=== PATIENT | female | born 1980 | race Caucasian/White ===

== ENCOUNTER 2017-06-09 11:13 | Emergency (ER) | payer OTHER ==
[2017-06-09 11:18] VITALS: TEMP 97.4; BMI 37.9
--- NOTE | 2017-06-09 11:44 | PDOC ---
History of Present Illness - General Chief Complaint: Headache Stated Complaint: HEADACHE Time Seen by Provider: 06/09/17 11:31 - History of Present Illness Initial Comments: 06/09/17 12:40 The patient is a 36 year old female with a history of Migraines, Fibromyalgia who presents for evaluation of headache. The patient reports a 4 day history of worsening headache with some associated tingling and numbness to her right cheek. She states that her symptoms did not improve with excedrine and felt different from her normal headaches prompting her presentation to the ED for evaluation. She reports some nausea with 2 episodes of non-bilious, non-bloody vomiting, but otherwise denies fevers, chills, SOB, chest pain, abdominal pain, or changes with urination or bowel movements. Past History - Past Medical History Allergies/Adverse Reactions: Allergies Allergy/AdvReac Type Severity Reaction Status Date / Time No Known Allergies Allergy Verified 06/09/17 11:14 Home Medications: Ambulatory Orders NK [No Known Home Medication] 06/01/14 Asthma: No Cancer: No Cardiac Disorders: No COPD: No DVT: No Diabetes: No HTN: No Kidney Stones: Yes Seizures: No Thyroid Disease: No Other medical history: migraines, fibromyalgia - Immunization History Immunization Up to Date: Yes (FLU 2013) - Suicide/Smoking/Psychosocial Hx Smoking History: Current every day smoker Have you smoked in the past 12 months: Yes Number of Cigarettes Smoked Daily: 6 Information on smoking cessation initiated: Yes 'Breaking Loose' booklet given: 06/09/17 Hx Alcohol Use: No Drug/Substance Use Hx: No Substance Use Type: None Hx Substance Use Treatment: No Review of Systems - Review of Systems Comments:: 06/09/17 12:43 Constitutional: No fevers, chills, fatigue, malaise HEENT: No Rhinorrhea, nasal congestion, visual changes Cardiovascular: No chest pain, syncope, palpitations, lightheadedness Respiratory: No Cough, SOB, Hemoptysis, Gastrointestinal: Nausea, vomiting. No Abdominal pain, Constipation, Diarrhea, Melena Genitourinary: No Dysuria, Frequency, Urgency, Hesitancy, Hematuria, Flank pain Musculoskeletal: No Myalgia, arthralgia Skin: No rashes, itching, bruising, pallor Neurologic: Headache, numbness, tingling. No Dizziness, Weakness, Psychiatric: No Hallucinations. No SI or HI *Physical Exam - Vital Signs Last Vital Signs Temp Pulse Resp BP Pulse Ox 97.4 F L 71 18 130/67 99 06/09/17 11:15 06/09/17 11:15 06/09/17 11:15 06/09/17 11:15 06/09/17 11:15 - Physical Exam Comments: 06/09/17 12:44 General Appearance: Nourished. No Apparent Distress HEENT: EOMI, GRETCHEN. No Pharyngeal Erythema, Tonsillar Exudate, Tonsillar Erythema Neck: No Cervical Lymphadenopathy Respiratory/Chest: Lungs Clear, Normal Breath Sounds. No Crackles, Rales, Rhonchi, Wheezing Cardiovascular: Regular Rhythm, Regular Rate. No Murmur, Gallops, Rubs Gastrointestinal/Abdominal: Normal Bowel Sounds, Soft. No Guarding, Rebound, Tenderness Musculoskeletal: No CVA Tenderness Extremity: Normal Capillary Refill Integumentary: Normal Color, Dry, Warm Neurologic: oracle forms developer II-XII NML intact, Fully Oriented, Alert, Normal Mood/Affect, Normal Response, Motor Strength 5/5. Normal Finger to Nose and Heel to [place] ED Treatment Course - LABORATORY CBC & Chemistry Diagram: 06/09/17 12:02 06/09/17 12:02 Medical Decision Making - Medical Decision Making 06/09/17 12:45 The patient is a 36 year old female with a history of Migraines, Fibromyalgia who presents for evaluation of headache. Differential includes but is not limited to: Migraine Headache, Trigeminal Neuralgia, Intracranial process, infectious, metabolic derangement. Given the patient's history of migraines, it is likely the patient's symptoms are due to a migraine headache or due to a trigeminal neuralgia. However, we will obtain a cbc, cmp, serum preg and head CT to evaluate further for possible etiologies. We will treat in the meantime with iv fluids, reglan, iv tylenol. We will continue to monitor and reassess. 06/09/17 13:18 CBC, cmp, serum preg are unremarkable. Head CT is unremarkable as read by our radiologist. The patient reports improvement in her symptoms. We are comfortable discharging the patient home at this time with neurology follow up. We discussed the results, plan, and return precautions with the patient who voiced understanding and is agreeable with the plan. *DC/Admit/Observation/Transfer Diagnosis at time of Disposition: Headache Qualifiers: Headache type: unspecified Headache chronicity pattern: unspecified pattern Intractability: not intractable Qualified Code(s): R51 - Headache - Discharge Dispostion Disposition: HOME Condition at time of disposition: Good Admit: No - Referrals Referrals: Mingo Alonso [Primary Care Provider] - Torito Garner MD [Staff Physician] - - Patient Instructions Printed Discharge Instructions: DI for Headache Additional Instructions: Please return to the ER if you experience concerning or worsening symptoms including worsening headache, fevers, vomiting, or weakness in your arms or legs. Your lab results and CT scan were normal here in the ER. It is extremely important that you call to schedule a follow up appointment with our Neurologist Dr. Garner within 2-3 days to discuss your ER visit and further management of your symptoms. Please also call to schedule a follow up appointment with your primary care provider within 1 week to discuss your ER visit as well. - Post Discharge Activity
[2017-06-09] MEDS ORDERED: ACETAMINOPHEN 1000 MG/100 ML VIAL (NON FORMULARY) IVPB ONE (11:52)
[2017-06-09] MEDS ORDERED: METOCLOPRAMIDE HCL INJECTION 10 MG/2 ML VIAL IVPUSH ONE (11:52)
[2017-06-09] MEDS ORDERED: SODIUM CHLORIDE 1,000 ML IV STA (11:52)
[2017-06-09] MEDS ORDERED: METOCLOPRAMIDE HCL INJECTION 10 MG/2 ML VIAL ONE (11:59)
[2017-06-09] MEDS ORDERED: ACETAMINOPHEN INJECTION 100 ML IVPB ONE (11:59)
[2017-06-09 12:12] LABS: BASO % 0.9 % (0-2.0); EOS % 0.9 % (0-4.5); HEMATOCRIT 39.9 % (32.4-45.2); HEMOGLOBIN 13.2 GM/dL (10.7-15.3); LYMPH % 26.9 % (8-40); MCH 27.6 pg (25.7-33.7); MCHC 32.9 g/dl (32.0-36.0); MEAN CELL VOLUME 83.8 fl (80-96); MEAN PLT VOLUME 7.9 fl (7.5-11.1); MONO % 6.3 % (3.8-10.2); PLATELET COUNT 330 K/MM3 (134-434); RBC 4.77 M/mm3 (3.60-5.2); RDW 14.1 % (11.6-15.6); WHITE BLOOD COUNT 9.4 K/mm3 (4.0-10.0)
[2017-06-09 12:41] LABS: ALBUMIN 3.9 g/dl (3.4-5.0); ANION GAP 5 (8-16); BLOOD UREA NITROGEN 18 mg/dL (7-18); CALCIUM 8.8 mg/dL (8.5-10.1); CHLORIDE 107 mmol/L (98-107); CO2 27 mmol/L (21-32); CREATININE 0.8 mg/dL (0.55-1.02); GLUCOSE,RANDOM 93 mg/dL (74-106); POTASSIUM 3.8 mmol/L (3.5-5.1); SGOT/AST 16 U/L (15-37); SGPT/ALT 16 U/L (12-78); SODIUM 139 mmol/L (136-145)
[2017-06-09 12:44] LABS: ALK PHOS 119 U/L (45-117); BILIRUBIN,TOTAL 0.2 mg/dL (0.2-1.0); TOT PROT 7.2 g/dl (6.4-8.2)
--- NOTE | 2017-06-09 14:10 | PDOC ---
Attending Attestation - Resident Resident Name: Yossi Blanca - ED Attending Attestation I have performed the following: I have examined & evaluated the patient, The case was reviewed & discussed with the resident, I agree w/resident's findings & plan, Exceptions are as noted - HPI HPI: 06/09/17 14:04 Ms Thomas presents to the ER with a complaint of headache. She has a history of Migraines and fibromyalgia She has had a headache for the past 4 days with associated tingling and numbness of the right cheek No improvement with Excedrine which prompted her visit to the ER (+) nausea, non bloody vomiting x 2 No fevers or chills No head trauma No changes in motor strength or sensation - Physicial Exam PE: 06/09/17 14:06 On examination Awake and alert Oriented x 3 RRR CTA No abd tenderness Neurologic: The patient is awake, alert, oriented x3. Gross motor and sensory exam is found to be intact. Sensation of distal lower extremities intact. 5/5 muscle strength of the lower extremities. - Medical Decision Making 06/09/17 14:07 36 yo F presenting with worsening migraine which has been constant for 4 days No nuchal rigidity or fever to suggest meningitis No neurological deficits Pt has h/o migraine ? sensory changes related to complicated migraine Will do: Labs CT Medications Will re assess 06/09/17 14:09 Laboratory Tests 06/09/17 06/09/17 06/09/17 12:02 12:02 12:02 WBC 9.4 Hgb 13.2 Hct 39.9 Plt Count 330 BUN 18 Creatinine 0.8 Serum , Qual Negative 06/09/17 14:09 CT: no acute intracranial pathology Will discharge to home Will ask pt to follow up PMD and Neurology Clinical Impression: migrainous headache, initial presentation
[2017-06-09 14:20] VITALS: BP 140/83; PULSE 60
== END 2017-06-09 14:20 | disposition home or self-care (01) ==
LOC: JER 11:13
PROC: 3E033NZ Introduction of Analgesics, Hypnotics, Sedatives into Peripheral Vein, Percutaneous Approach (ICD-10-PCS; principal; 2017-06-09)
PROC: 3E033GC Introduction of Other Therapeutic Substance into Peripheral Vein, Percutaneous Approach (ICD-10-PCS; 2017-06-09)
DX: R51 Headache (principal); M79.7 Fibromyalgia; G43.909 Migraine, unspecified, not intractable, without status migrainosus
CPT/HCPCS: 36415; 70450-TC; 80053; 84703; 85025; 96374; 96375; 99282-25; J0131; J7030

== ENCOUNTER 2018-06-27 08:11 | Emergency (ER) | payer OTHER ==
[2018-06-27 08:21] VITALS: BMI 30.4
[2018-06-27] MEDS ORDERED: ONDANSETRON 4 MG/2 ML VIAL IVPUSH ONE (08:35)
[2018-06-27] MEDS ORDERED: MECLIZINE HCL 25 MG TABLET (FP) PO ONE (08:35)
[2018-06-27] MEDS ORDERED: ONDANSETRON 4 MG/2 ML VIAL ONE (08:40)
[2018-06-27] MEDS ORDERED: MECLIZINE HCL 25 MG TABLET (FP) ONE (08:40)
[2018-06-27] MEDS ORDERED: SODIUM CHLORIDE 0.9% 1000 ML INFUS.BAG IV ONE (08:53)
--- NOTE | 2018-06-27 09:14 | PDOC ---
Documentation entered by Wilbur Carter SCRIBE, acting as scribe for Ioana Francisco MD. Ioana Francisco MD: This documentation has been prepared by the Raul earl Nirvannie, SCRIBE, under my direction and personally reviewed by me in its entirety. I confirm that the documentation accurately reflects all work, treatment, procedures, and medical decision making performed by me. Attending Attestation - Resident Resident Name: GuilleambrocioHernandez - ED Attending Attestation I have performed the following: I have examined & evaluated the patient, The case was reviewed & discussed with the resident, I agree w/resident's findings & plan - HPI HPI: 06/27/18 09:16 37-year-old female with history of migraines and fibromyalgia - presenting with syncopal episode this AM. she woke up at 6AM with acute vertigo, tried to go to the bathroom but due to the vertigo, she passed out walking in the hallway, no sz activity, out for unknown period. She hit her head against the wall. Continues to feel vertigo, associated with diaphoresis and weakness; no paresthesias or focal weakness, prodromal URI sx, no n/v, AP, blurry vision, blindness, tinnitis, hearing disturbances, urinary or bowel incontinence, headache. [facility] previously for vertigo sx similar presentation earlier in 2019 Admits to Feeling off x 3 months. No trauma or known triggers or stressors. - Physicial Exam PE: 06/27/18 09:14 Agree with the resident's HPI and PE as documented in the electronic medical record. NAD, well appearing, PERRL, EOMI, MMM, nl conjunctiva, anicteric; neck supple. lungs clear, RRR, abdomen soft nontender. SANDERSON x4, no focal neuro deficits. No peripheral edema. normal color for ethnicity, WWP. Alert, oriented to person time and place. No carotid bruit, CN II-XII grossly intact. Strength prox and distally 5/5 throughout. Sensation grossly intact to light touch. SANDERSON x4. No cerebellar signs, no dysmetria, bilateral finger to nose and heel to britt equal and symmetric. Speech clear. - Medical Decision Making 06/27/18 09:13 See HPI for details Vital signs reviewed, wnl. DDx. syncope: considered interval abnormalities including short QTC or long QT syndrome, WPW, conduction abnormality, Brugada, ACS, coronary vasospasm, arrhythmia, dissection, PE, electrolyte disturbances, metabolic derangement. Acute vertigo, peripheral vs central vertigo, BPPV, Considered but clinically doubt based on HPI and PE: Prior notes reviewed, including admissions, discharges and consultations. laboratory results and imaging reviewed, basic labs and lytes wnl, CXR_no acute chest pathology Cardiac panel_negative Dimer_neg, so unlikely PE and clinically not dissection, without neuro deficits or additional compliants such as CP. EKG sinus bradycardia at 47 bpm, no interval abnormalities, narrow QRS, ST and T wave segments and morphology normal. TWI in III, V3; no elevations or depressions of ST segments. similar to prior EKG ED course: no acute events. active vertigo, appearing peripheral without neuro deficits or changes, ambulatory no gait ataxia. attempt at Leeanne. HR improving at bedside with stimulation, up to NSR >60 bpm given meclizine and zofran, reassess CT head pending, conflicts/issues due to several last names and merging of data/ info. on reassessment at 1:00PM - pt refused further care, does not want to wait for pending CT head, wishes to go home despite feeling symptomatic and offered additional analgesia/meds. The patient has requested to leave the ED against medical advice. The patient reason(s) for leaving include, but are not limited to, the following: XXXX. I believe this patient is of sound mind and competent to refuse medical care. The patient is responding and asking questions appropriately. The patient is oriented to person, place and time. The patient is not psychotic, delusional, suicidal, homicidal or hallucinating. The patient demonstrates a normal mental capacity to make decisions regarding their healthcare. The patient is clinically sober and does not appear to be under the influence of any illicit drugs at this time. The patient has been advised of the risks, in layman terms, of leaving AMA which include, but are not limited to cardiac arrest, bleeding, head bleed, vertebral/vessal dissection and aneurysm, mass, arrhythmia, heart attack, stroke, respiratory failure, delay in diagnosis and management, loss of current lifestyle, loss of functional status, multiorgan failure, coma, severe disability and . Alternatives have been offered - the patient remains steadfast in their wish to leave. The patient has been advised that should they change their mind they are welcome to return to this hospital, or any other, at any time. The patient understands that in no way does an AMA discharge mean that I do not want them to have the best medical care available. To this end, I have provided appropriate prescriptions, referrals, and discharge instructions. The patient did sign AMA paperwork. The above discussion was witnessed by another member of staff, ANTONINA Bardales 06/27/18 16:00 Heart Score/ECG Review #1 ECG reviewed & interpreted by me at: 08:15 General ECG Interpretation: Sinus Rhythm, Normal Intervals Compared to previous ECG there are: No significant change 06/27/18 09:14 EKG sinus bradycardia at 47 bpm, no interval abnormalities, narrow QRS, ST and T wave segments and morphology normal. TWI in III, V3; no elevations or depressions of ST segments. similar to prior EKG
[2018-06-27 09:38] LABS: BASO % 0.5 % (0-2.0); EOS % 1.1 % (0-4.5); HEMATOCRIT 44.2 % (32.4-45.2); LYMPH % 26.2 % (8-40); MCH 27.2 pg (25.7-33.7); MCHC 31.6 g/dl (32.0-36.0); MEAN CELL VOLUME 86.1 fl (80-96); MEAN PLT VOLUME 7.9 fl (7.5-11.1); MONO % 6.6 % (3.8-10.2); NEUT % 65.6 % (42.8-82.8); PLATELET COUNT 369 K/MM3 (134-434); RBC 5.13 M/mm3 (3.60-5.2); RDW 13.9 % (11.6-15.6); WHITE BLOOD COUNT 9.8 K/mm3 (4.0-10.0)
--- NOTE | 2018-06-27 09:54 | PDOC ---
History of Present Illness - General Chief Complaint: Syncope/Near Syncope Stated Complaint: SHAKING Time Seen by Provider: 06/27/18 08:34 History Source: Patient, EMS, Significant Other Exam Limitations: No Limitations - History of Present Illness Initial Comments: 06/27/18 09:44 37F with PMH of vertigo who presents to the ER with complaints of dizziness, lightheadedness, and syncope. The patient states that she woke up this morning feeling "very off" with "dizziness" which she describes as room spinning and feeling "herself spinning". She states that she was walking and passed out, hitting her head on the way down. She admits to mild CP which she cannot describe except for pleuritic with "some" SOB. She denies long car rides/plane trips, hx of ca, hx of DVT/PE, hemoptysis, oral contraceptives, but admits to smoking 3-4 cigarettes/day. Past History - Past Medical History Allergies/Adverse Reactions: Allergies Allergy/AdvReac Type Severity Reaction Status Date / Time No Known Allergies Allergy Verified 06/27/18 08:35 Home Medications: Ambulatory Orders Meclizine HCl [Antivert -] 25 mg PO DAILY #30 tablet 06/27/18 Asthma: No Cancer: No Cardiac Disorders: No COPD: No DVT: No Diabetes: No HTN: No Kidney Stones: Yes Seizures: No Thyroid Disease: No - Immunization History Immunization Up to Date: Yes (FLU 2013) - Suicide/Smoking/Psychosocial Hx Smoking History: Current every day smoker Have you smoked in the past 12 months: Yes Number of Cigarettes Smoked Daily: 4 Information on smoking cessation initiated: No 'Breaking Loose' booklet given: 06/09/17 Hx Alcohol Use: No Drug/Substance Use Hx: Yes (marijuana) Substance Use Type: None Hx Substance Use Treatment: No Review of Systems - Review of Systems Able to Perform ROS?: Yes Comments:: 06/27/18 09:48 GENERAL/CONSTITUTIONAL: No fever or chills. No weakness. HEAD, EYES, EARS, NOSE AND THROAT: No change in vision. No ear pain or discharge. No sore throat. CARDIOVASCULAR: No chest pain, palpitations, or lightheadedness. RESPIRATORY: No cough, wheezing, shortness of breath, or hemoptysis. GASTROINTESTINAL: No nausea, vomiting, diarrhea, constipation, or abdominal pain. GENITOURINARY: No dysuria, frequency, hematuria, or change in urination. MUSCULOSKELETAL: No joint or muscle swelling or pain. No neck or back pain. SKIN: No rash or lesions. NEUROLOGIC: + for headache and vertiginous dizziness w/ syncope. No numbness, tingling, focal weakness, or change in strength/sensation. Is the patient limited Romansh proficient: No *Physical Exam - Vital Signs Last Vital Signs Temp Pulse Resp BP Pulse Ox 97.8 F 64 16 124/85 100 06/27/18 08:14 06/27/18 08:14 06/27/18 08:14 06/27/18 08:14 06/27/18 08:14 - Physical Exam Comments: 06/27/18 09:54 GENERAL: Well developed, well nourished. Awake and alert. In mild distress. HEENT: Normocephalic, atraumatic. Hearing grossly normal. Moist mucous membranes. PERRLA, EOMI. No conjunctival pallor. Sclera are non-icteric. . NECK: Supple. Full ROM. No JVD. CARDIOVASCULAR: Regular rate and rhythm. No murmurs, rubs, or gallops. PULMONARY: No evidence of respiratory distress. Lungs clear to auscultation bilaterally. No wheezing, rales or rhonchi. ABDOMINAL: Soft. Non-tender. Non-distended. No rebound or guarding. MUSCULOSKELETAL: Normal range of motion at all joints. No bony deformities or tenderness. EXTREMITIES: No cyanosis. No clubbing. No edema. No calf tenderness or swelling. SKIN: Warm and dry. Normal capillary refill. No rashes. No jaundice. NEUROLOGICAL: Alert, awake, appropriate. Cranial nerves 2-12 grossly intact. Persistent horizontal nystagmus w/ reproducible dizziness when staring at R. 5/ 5 strength in deltoids, biceps, triceps, quadriceps, hamstrings, and gastrocnemius. Normal speech. Gait is normal without ataxia. PSYCHIATRIC: Cooperative. Good eye contact. Appropriate mood and affect. ED Treatment Course - LABORATORY CBC & Chemistry Diagram: 06/27/18 08:52 06/27/18 08:52 - RADIOLOGY Radiology Studies Ordered: Category Date Time Status HEAD CT WITHOUT CONTRAST [CT] Stat CT Scan 06/27/18 08:54 Ordered CHEST PA & LAT [RAD] Stat Radiology 06/27/18 08:35 Ordered - Medications Given in the ED: ED Medications Discontinued Medications Generic Name Dose Route Start Last Admin Trade Name Chago PRN Reason Stop Dose Admin Meclizine HCl 25 mg 06/27/18 08:35 06/27/18 09:08 Antivert - PO 06/27/18 08:36 25 mg ONCE ONE Administration Ondansetron HCl 4 mg 06/27/18 08:35 06/27/18 09:08 Zofran Injection IVPUSH 06/27/18 08:36 4 mg ONCE ONE Administration Sodium Chloride 1,000 ml 06/27/18 08:53 06/27/18 09:09 Normal Saline - IV 06/27/18 08:54 1,000 ml ONCE ONE Administration Medical Decision Making - Medical Decision Making 06/27/18 09:55 37F with PMH of vertigo presenting w/ vertiginous sx and CP w/ SOB. Low likelihood for PE. Pt PERC negative. Will send dimer and CTH due to trauma when falling. 06/27/18 13:22 Pt is requesting to leave AMA. Sending scripts to pharmacy. Informed of risks of leaving. Pt still requests to leave. Will sign forms and d/c with PCP f/u. *DC/Admit/Observation/Transfer Diagnosis at time of Disposition: Headache Qualifiers: Headache type: unspecified Headache chronicity pattern: acute headache Intractability: not intractable Qualified Code(s): R51 - Headache - Discharge Dispostion Disposition: AGAINST MEDICAL ADVICE Condition at time of disposition: Stable Decision to Admit order: No - Prescriptions Prescriptions: Meclizine HCl [Antivert -] 25 mg PO DAILY #30 tablet - Referrals Referrals: [facility] [place] [Provider Group] Omar Santoyo MD [Staff Physician] - - Patient Instructions Printed Discharge Instructions: Vertigo, DI for Dizziness-Nonvertigo Additional Instructions: Your ER visit is not complete until your follow up with your primary care physician. Please follow up with your primary care physician in 1-2 days. Please return to the ER if you have any signs or symptoms of chest pain, shortness of breath, uncontrollable fever, chills, nausea, vomiting, numbness, tingling, or weakness in any part of your body, changes in vision, or slurred speech. Please take your medications as prescribed. Please return to the ER if symptoms persist, worsen, or new symptoms arise. - Post Discharge Activity
[2018-06-27 09:55] LABS: INR 1.02 (0.83-1.09)
[2018-06-27 10:05] LABS: ALBUMIN 4.4 g/dl (3.4-5.0); ALK PHOS 118 U/L (45-117); ANION GAP 6 MMOL/L (8-16); BILIRUBIN,TOTAL 0.3 mg/dL (0.2-1); BLOOD UREA NITROGEN 17 mg/dL (7-18); CALCIUM 9.6 mg/dL (8.5-10.1); CHLORIDE 106 mmol/L (98-107); CO2 27 mmol/L (21-32); CREATININE 0.7 mg/dL (0.55-1.3); GLUCOSE,RANDOM 79 mg/dL (74-106); POTASSIUM 4.3 mmol/L (3.5-5.1); SGOT/AST 10 U/L (15-37); SGPT/ALT 29 U/L (13-61); SODIUM 138 mmol/L (136-145); TOT PROT 7.9 g/dl (6.4-8.2)
--- NOTE | 2018-06-27 11:44 | EKG ---
Test Reason : Blood Pressure : / mmHG Vent. Rate : 047 BPM Atrial Rate : 047 BPM P-R Int : 186 ms QRS Dur : 090 ms QT Int : 420 ms P-R-T Axes : 056 -07 004 degrees QTc Int : 371 ms SINUS BRADYCARDIA WITH SINUS ARRHYTHMIA ANTERIOR INFARCT , AGE UNDETERMINED ABNORMAL ECG WHEN COMPARED WITH ECG OF 01-APR-2013 02:25, NO SIGNIFICANT CHANGE WAS FOUND Confirmed by TYLER GARCIA, SADIA ([id number]) on 06/27/2018 11:44:05 AM Referred By: Confirmed By:SADIA SCOTT MD
[2018-06-27 12:10] LABS: EPI CELLS 4.8 /HPF (0-5/HPF); URINE BACTERIA 74.9 /hpf (NEGATIVE); URINE CASTS 3 /lpf (0-8); URINE RBC 3 /hpf (0-4); URINE WBC 4 /hpf (0-5)
[2018-06-27 12:16] LABS: PH,URINE 7.5 (5.0-8.0); URINE APPEARANCE Clear; URINE BILIRUBIN Negative (NEGATIVE); URINE COLOR Yellow; URINE GLUCOSE (UA) Negative (NEGATIVE); URINE KETONE Negative (NEGATIVE); URINE LEUK ESTERASE Trace (NEGATIVE); URINE NITRITE Negative (NEGATIVE); URINE PROTEIN Negative (NEGATIVE); URINE UROBILINOGEN 0.2 mg/dL (0.2-1.0)
[2018-06-27 13:21] VITALS: BP 114/69; PULSE 52; TEMP 98.3
== END 2018-06-27 13:36 | disposition left against medical advice (07) ==
LOC: JER 08:11
PROC: 3E033GC Introduction of Other Therapeutic Substance into Peripheral Vein, Percutaneous Approach (ICD-10-PCS; principal; 2018-06-27)
PROC: 3E0337Z Introduction of Electrolytic and Water Balance Substance into Peripheral Vein, Percutaneous Approach (ICD-10-PCS; 2018-06-27)
DX: R51 Headache (principal)
CPT/HCPCS: 36415; 70450-TC; 71046-TC-FY; 80053; 81003; 82550; 84443; 84484; 84703; 85025; 85379; 85610; 93005; 93010; 96361; 96374; 99285-25; J7030

== ENCOUNTER 2018-08-05 09:51 | Emergency (ER) | payer OTHER ==
[2018-08-05 09:56] VITALS: BP 140/80; PULSE 75; TEMP 98.2; BMI 30.3
--- NOTE | 2018-08-05 10:40 | PDOC ---
History of Present Illness - General Chief Complaint: Pain, Acute Stated Complaint: VOMITING/ABD PAIN Time Seen by Provider: 08/05/18 10:34 History Source: Patient - History of Present Illness Timing/Duration: reports: getting worse Abdominal Pain Onset Location: reports: other (pelvic) Pain Radiation: reports: no radiation Past History - Past Medical History Allergies/Adverse Reactions: Allergies Allergy/AdvReac Type Severity Reaction Status Date / Time acetaminophen Allergy Verified 08/05/18 09:56 [From Tylenol-Codeine #3] codeine Allergy Verified 08/05/18 09:56 [From Tylenol-Codeine #3] Home Medications: Ambulatory Orders Unobtainable 08/05/18 Asthma: No Cancer: No Cardiac Disorders: No COPD: No DVT: No Diabetes: No HTN: No Kidney Stones: Yes Seizures: No Thyroid Disease: No - Immunization History Immunization Up to Date: Yes (2013) - Suicide/Smoking/Psychosocial Hx Smoking History: Current every day smoker Have you smoked in the past 12 months: No Number of Cigarettes Smoked Daily: 4 Information on smoking cessation initiated: No 'Breaking Loose' booklet given: 06/09/17 Hx Alcohol Use: No Drug/Substance Use Hx: No Substance Use Type: None Hx Substance Use Treatment: No Review of Systems - Review of Systems Constitutional: No: Chills, Fever ABD/GI: Yes: Nausea, Vomiting. No: Blood Streaked Bowels, Constipated, Diarrhea , Rectal Bleeding, Tarry Stools : Yes: Discharge. No: Burning, Dysuria, Flank Pain, Hematuria, Lesions *Physical Exam - Vital Signs Last Vital Signs Temp Pulse Resp BP Pulse Ox 98.2 F 75 18 140/80 100 08/05/18 09:53 08/05/18 09:53 08/05/18 09:53 08/05/18 09:53 08/05/18 09:53 - Physical Exam General Appearance: Yes: Appropriately Dressed. No: Apparent Distress HEENT: positive: Normal Voice Neck: positive: Supple Respiratory/Chest: negative: Respiratory Distress Female Pelvic Exam: positive: normal external exam, cervical os closed, normal adnexa. negative: CMT, discharge, adnexal tenderness, vaginal bleeding Gastrointestinal/Abdominal: positive: Normal Bowel Sounds, Tender (diffuse ttp to suprapubic area, ? ttp over mcburneys), Soft. negative: Distended, Guarding , Rebound Musculoskeletal: negative: CVA Tenderness Integumentary: positive: Dry, Warm Neurologic: positive: Fully Oriented, Alert, Normal Mood/Affect ED Treatment Course - LABORATORY CBC & Chemistry Diagram: 08/05/18 11:30 08/05/18 11:30 Medical Decision Making - Medical Decision Making 08/05/18 10:40 38 yo F, h/o migraines, fibromyalgia, vertigo, here w/ abd pain. Pt reports severe lower abd pain of unclear duration. Pt initially stated that pain started 4 days ago, but then reported that it might have been going on longer than that, but that it did get worse 4 days ago. Unable to describe pain, now constant and had several episodes of nausea, vomiting over the past couple days. No change in bowel movements, dysuria, hematuria, fever or chills. States she noticed a stick white vag discharge this a.m., no odor or itch. Sexually active with long time male partner with no history of STD per patient. Patient states she might have been told she had a L ovarian cyst in the past, but then told it was gone on rpt US. No ho fibroids. Patient concerned about sxs because she has a sister with ovarian cancer. Patient now states she has lost over 100 pounds in 3 months. Per chart review, patient is approximately 87 kg today, was 103 kg on last visit >1 yr ago (46 pound difference). Does also reports that she has no appetite. See exam Pelvic pain R/o torsion vs appy vs UTI, less likely PID as unremarkable pelvic exam -pain control -labs -US -possibly CT 08/05/18 14:04 Labs/UA and US unremarkable. Will scan at this time. Pain since improved w/ toradol 08/05/18 15:55 CT as no acute pathology and non-obstructing right renal stones. No ureteral stones seen. Patient's pain since resolved with toradol and stable for discharge to follow-up with her PMD for further evaluation *DC/Admit/Observation/Transfer Diagnosis at time of Disposition: Pelvic pain - Discharge Dispostion Disposition: HOME Condition at time of disposition: Stable - Referrals - Patient Instructions Printed Discharge Instructions: DI for Pelvic Pain Additional Instructions: The cause of your pain is unclear at this time as your labs, ultrasound and CT did not reveal a source If pain persists, please follow up with your PMD Take motrin or tylenol for pain in the meantime Return for worsening of symptoms - Post Discharge Activity
[2018-08-05] MEDS ORDERED: KETOROLAC TROMETHAMINE 30 MG/1 ML VIAL IVPUSH ONE (10:45)
[2018-08-05] MEDS ORDERED: KETOROLAC TROMETHAMINE 30 MG/1 ML VIAL ONE (11:24)
[2018-08-05 11:44] LABS: EPI CELLS 3.1 /HPF (0-5/HPF); HYALINE CASTS 2 /lpf (0-8); PH,URINE 6.5 (5.0-8.0); URINE APPEARANCE CLEAR; URINE BACTERIA 31.5 /hpf (NEGATIVE); URINE BILIRUBIN NEGATIVE (NEGATIVE); URINE COLOR YELLOW; URINE GLUCOSE (UA) NEGATIVE (NEGATIVE); URINE KETONE NEGATIVE (NEGATIVE); URINE LEUK ESTERASE NEGATIVE (NEGATIVE); URINE NITRITE NEGATIVE (NEGATIVE); URINE PROTEIN NEGATIVE (NEGATIVE); URINE RBC 36 /hpf (0-4); URINE UROBILINOGEN 0.2 mg/dL (0.2-1.0); URINE WBC 1 /hpf (0-5)
[2018-08-05 11:45] LABS: HCG,QUALITATIVE URINE Negative
[2018-08-05 11:51] LABS: BASO % 0.7 % (0-2.0); EOS % 0.5 % (0-4.5); HEMATOCRIT 42.4 % (32.4-45.2); LYMPH % 18.6 % (8-40); MCH 28.3 pg (25.7-33.7); MCHC 32.9 g/dl (32.0-36.0); MEAN CELL VOLUME 86.1 fl (80-96); MEAN PLT VOLUME 7.7 fl (7.5-11.1); MONO % 4.8 % (3.8-10.2); NEUT % 75.4 % (42.8-82.8); PLATELET COUNT 367 K/MM3 (134-434); RBC 4.93 M/mm3 (3.60-5.2); WHITE BLOOD COUNT 10.6 K/mm3 (4.0-10.0)
[2018-08-05 12:21] LABS: ALBUMIN 4.7 g/dl (3.4-5.0); BILIRUBIN,TOTAL 0.4 mg/dL (0.2-1); BLOOD UREA NITROGEN 11.5 mg/dL (7-18); CALCIUM 9.9 mg/dL (8.5-10.1); CREATININE 0.8 mg/dL (0.55-1.3); TOT PROT 8.3 g/dl (6.4-8.2)
[2018-08-05 12:23] LABS: POTASSIUM 4.6 mmol/L (3.5-5.1)
== END 2018-08-05 16:00 | disposition home or self-care (01) ==
LOC: JER 09:51
PROC: 3E0333Z Introduction of Anti-inflammatory into Peripheral Vein, Percutaneous Approach (ICD-10-PCS; principal; 2018-08-05)
DX: R10.2 Pelvic and perineal pain (principal); R42 Dizziness and giddiness; M79.7 Fibromyalgia; G43.909 Migraine, unspecified, not intractable, without status migrainosus
CPT/HCPCS: 36415; 74177-TC; 76830-TC; 76856-TC; 80053; 81003; 83690; 84703; 85025; 87491; 87591; 99283-25

== ENCOUNTER 2019-08-28 13:21 | Emergency (ER) | payer OTHER ==
[2019-08-28 13:31] VITALS: BP 136/85; PULSE 83; TEMP 97.8; BMI 31.4
[2019-08-28] MEDS ORDERED: CYCLOBENZAPRINE HCL 10 MG TABLET (FP) PO ONE (13:31)
[2019-08-28] MEDS ORDERED: KETOROLAC TROMETHAMINE 60 MG/2 ML VIAL IM ONE (13:31)
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
[2019-08-28] MEDS ORDERED: METHOCARBAMOL 500 MG TABLET PO ONE (13:49)
[2019-08-28] MEDS ORDERED: LIDOCAINE 5% TOPICAL PATCH TP ONE (14:03)
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
[2019-08-28] MEDS ORDERED: KETOROLAC TROMETHAMINE 60 MG/2 ML VIAL ONE (14:16)
[2019-08-28] MEDS ORDERED: LIDOCAINE 5% TOPICAL PATCH ONE (14:16)
[2019-08-28] MEDS ORDERED: METHOCARBAMOL 500 MG TABLET ONE (14:16)
== END 2019-08-28 15:08 | disposition home or self-care (01) ==
LOC: JER 13:21
PROC: 3E023GC Introduction of Other Therapeutic Substance into Muscle, Percutaneous Approach (ICD-10-PCS; principal; 2019-08-28)
DX: M54.42 Lumbago with sciatica, left side (principal)
CPT/HCPCS: 72100-TC-FY; 99284-25